=== PATIENT | female | born 1965 | race Caucasian/White ===

== ENCOUNTER 2024-05-29 09:15 | Outpatient (CLI) | payer SELFPAY ==
[2024-05-29 11:27] LABS: Kit Draw Collected
== END 2024-05-29 09:16 | disposition home or self-care (01) ==
PROVIDERS: PCP Chiropractor; Visit Provider Chiropractor
DX: K58.9 Irritable bowel syndrome, unspecified (principal); K82.0 Obstruction of gallbladder; I10 Essential (primary) hypertension; R53.83 Other fatigue; R63.5 Abnormal weight gain
CPT/HCPCS: 36415